=== PATIENT | female | born 1990 | race Caucasian/White ===

== ENCOUNTER 2024-09-07 15:11 | Emergency (ER) | payer OTHER ==
[2024-09-07 15:47] VITALS: RESP 20; TEMP 97.9
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
[2024-09-07 17:09] VITALS: BP 99/67; PULSE 86
== END 2024-09-07 17:12 | disposition home or self-care (01) ==
LOC: EC 15:11
DX: S80.12XA Contusion of left lower leg, initial encounter (principal); V43.62XA Car passenger injured in collision with other type car in traffic accident, initial encounter; Y92.410 Unspecified street and highway as the place of occurrence of the external cause
CPT/HCPCS: 99284